=== PATIENT | female | born 1980 | race Two or more races ===

== ENCOUNTER 2016-09-07 16:08 | Emergency (ER) | payer SELFPAY ==
[~2016-09-07] VITALS: Ht 165.1 cm; Wt 59.0 kg
[2016-09-07 16:26] VITALS: BP 113/74
== END 2016-09-07 18:06 | disposition home or self-care (01) ==
LOC: ER 16:09
DX: T78.49XA Other allergy, initial encounter (principal); R51 Headache; R05 Cough; R11.0 Nausea; F17.210 Nicotine dependence, cigarettes, uncomplicated; F32.9 Major depressive disorder, single episode, unspecified; X58.XXXA Exposure to other specified factors, initial encounter; Y93.89 Activity, other specified; Y99.8 Other external cause status; Y92.89 Other specified places as the place of occurrence of the external cause
CPT/HCPCS: 99283